=== PATIENT | female | born 1955 ===

== ENCOUNTER 2020-11-19 16:58 | Emergency (ER) | payer BC ==
[~2020-11-19] VITALS: Ht 162.6 cm; Wt 72.7 kg
[2020-11-19 17:07] VITALS: BP 139/71
[2020-11-19] MEDS ORDERED: ONDA4TAB12 PO (20:31)
[2020-11-19] MEDS ORDERED: HYDR-3965 PO (20:31)
== END 2020-11-19 20:49 | disposition home or self-care (01) ==
LOC: ER 16:59
DX: S92.354A Nondisplaced fracture of fifth metatarsal bone, right foot, initial encounter for closed fracture (principal); M79.671 Pain in right foot; F41.9 Anxiety disorder, unspecified; Z79.899 Other long term (current) drug therapy; X50.1XXA Overexertion from prolonged static or awkward postures, initial encounter; Y93.89 Activity, other specified; Y92.89 Other specified places as the place of occurrence of the external cause; Y99.8 Other external cause status
CPT/HCPCS: 73610; 73630; 99284